=== PATIENT | male | born 1945 | race Asian ===

== ENCOUNTER 2021-04-02 06:06 | Day surgery (SDC) | payer MEDICARE ==
[~2021-04-02] VITALS: Ht 175.3 cm; Wt 60.0 kg
[~2021-04-02 06:06] MED LIST: SODIUM CHLORIDE 0.9% 1,000 ML IV ONE; SODIUM CHLORIDE 0.9% 1,000 ML ONE
[2021-04-02] MEDS ORDERED: ASPIRIN 81 MG CHEWABLE TABLET ONE (06:47)
[2021-04-02] MEDS ORDERED: DiphenhydrAMINE HCL 50 MG CAPSULE ONE (06:47)
[2021-04-02] MEDS ORDERED: DIAZEPAM 5 MG TABLET ONE (06:48)
[2021-04-02] MEDS ORDERED: IOHEXOL 300 MG/ML 50 ML VIAL ONE (07:10)
[2021-04-02] MEDS ORDERED: SODIUM BICARBONATE 50 MEQ/50 ML VIAL ONE (07:10)
[2021-04-02] MEDS ORDERED: LIDOCAINE/PF 1% 30 ML VIAL ONE (07:10)
[2021-04-02] MEDS ORDERED: HEPARIN SODIUM 1000 UNITS/NS 1,000 ML ONE (07:10)
[2021-04-02] MEDS ORDERED: IOHEXOL 300 MG/ML 100 ML VIAL ONE (07:10)
[2021-04-02] MEDS ORDERED: IOHEXOL 300 MG/ML 150 ML VIAL ONE ×2 (07:10→08:28)
[2021-04-02 07:22] LABS: GLUCOMETER DEV NAME(LOC) SDS.; GLUCOSE,POINT OF CARE 164 MG/DL (70-110)
[2021-04-02] MEDS ORDERED: ATOR10TA69 PO (07:28)
[2021-04-02] MEDS ORDERED: ASPI-1450 PO (07:28)
[2021-04-02] MEDS ORDERED: LINA5TAB PO (07:28)
[2021-04-02] MEDS ORDERED: DIAZEPAM 5 MG TABLET PO ONE (07:30)
[2021-04-02] MEDS ORDERED: ASPIRIN 81 MG CHEWABLE TABLET PO ONE (07:30)
[2021-04-02] MEDS ORDERED: DiphenhydrAMINE HCL 50 MG CAPSULE PO ONE (07:30)
[2021-04-02 07:47] VITALS: BP 171/88
[2021-04-02] MEDS ORDERED: FentaNYL CITRATE PF 100 MCG/2 ML VIAL ONE ×2 (07:48→08:31)
[2021-04-02] MEDS ORDERED: MIDAZOLAM HCL 2 MG/2 ML VIAL ONE ×2 (07:48→08:32)
[2021-04-02] MEDS ORDERED: METOPROLOL TARTRATE 5 MG/5 ML VIAL ONE ×4 (07:55→15:24)
[2021-04-02] MEDS ORDERED: LIDOCAINE 1% 30 ML/SOD BICARB 8.4% 4 ML SQ ONE (08:00)
[2021-04-02] MEDS ORDERED: MIDAZOLAM HCL 2 MG/2 ML VIAL IVP ONE ×3 (08:00→08:45)
[2021-04-02] MEDS ORDERED: HEPARIN SODIUM 1000 UNITS/NS 1,000 ML IARTER ONE (08:00)
[2021-04-02] MEDS ORDERED: IOHEXOL 300 MG/ML 150 ML VIAL IARTER ONE (08:00)
[2021-04-02] MEDS ORDERED: METOPROLOL TARTRATE 5 MG/5 ML VIAL IVP ONE ×3 (08:00→15:30)
[2021-04-02] MEDS ORDERED: SODIUM CHLORIDE 0.9% 500 ML IV ONE (08:00)
[2021-04-02] MEDS ORDERED: FentaNYL CITRATE PF 100 MCG/2 ML VIAL IVP ONE ×4 (08:00→08:45)
[2021-04-02] MEDS ORDERED: HEPARIN SODIUM,PORCINE 5,000 UNITS/ML VIAL IVP ONE ×2 (08:15→08:45)
[2021-04-02] MEDS ORDERED: TICAGRELOR 90 MG TABLET ONE ×2 (08:53→19:09)
[2021-04-02] MEDS ORDERED: TICAGRELOR 90 MG TABLET PO ONE ×2 (09:00→15:00)
[2021-04-02 09:12] VITALS: BP 171/74
[2021-04-02] MEDS ORDERED: SODIUM CHLORIDE 0.9% 1,000 ML IV ONE (09:15)
[2021-04-02] MEDS ORDERED: METOPROLOL TARTRATE 50 MG TABLET ONE (14:30)
[2021-04-02] MEDS ORDERED: AMIO200 PO (14:36)
[2021-04-02] MEDS ORDERED: GLIM4 PO (14:36)
[2021-04-02] MEDS ORDERED: INSU3INS3 SQ (14:36)
[2021-04-02] MEDS ORDERED: METOPROLOL TARTRATE 50 MG TABLET PO ONE (14:45)
[2021-04-02] MEDS ORDERED: DEXTROSE 50%-WATER 25 GM/50 ML SYRINGE IVP PRN (15:45)
[2021-04-02] MEDS ORDERED: INSULIN LISPRO 100 UNITS/ML SQ PRN (15:45)
[2021-04-02] MEDS ORDERED: ONDANSETRON HCL 4 MG/2 ML VIAL IVP PRN (15:45)
[2021-04-02] MEDS ORDERED: ACETAMINOPHEN 325 MG TABLET PO PRN (15:45)
[2021-04-02] MEDS ORDERED: OxyCODONE HCL/ACETAMINOPHEN 5-325 MG TABLET PO PRN (15:45)
[2021-04-02] MEDS ORDERED: INSLAN SQ (15:48)
[2021-04-02] MEDS ORDERED: CHOL-35 PO (15:48)
[2021-04-02] MEDS ORDERED: FERR-82 PO (15:48)
[2021-04-02] MEDS ORDERED: MULT-1259 PO (15:48)
[2021-04-02] MEDS ORDERED: TICAGRELOR 90 MG TABLET PO SCH (21:00)
[2021-04-02] MEDS ORDERED: DOCUSATE SODIUM 100 MG CAPSULE PO SCH (21:00)
[2021-04-02] MEDS ORDERED: ATORVASTATIN CALCIUM 40 MG TABLET PO SCH (21:00)
[2021-04-02] MEDS ORDERED: METOPROLOL TARTRATE 25 MG TABLET PO SCH (21:00)
[2021-04-03] MEDS ORDERED: ASPIRIN 81 MG CHEWABLE TABLET PO SCH (09:00)
[2021-04-03] MEDS ORDERED: FAMOTIDINE 20 MG TABLET PO SCH (09:00)
[2021-04-04] MEDS ORDERED: METO25 PO (08:43)
[2021-04-04] MEDS ORDERED: TICA90TA PO (08:43)
[2021-04-04] MEDS ORDERED: GLIM4 PO (08:43)
[2021-04-04] MEDS ORDERED: DIGO250T PO (08:43)
[2021-04-04 12:00] VITALS: BP 159/89
[2021-04-04 12:15] VITALS: BP 168/83
[2021-04-04 12:30] VITALS: BP 164/78
[2021-04-04 12:45] VITALS: BP 155/89
[2021-04-04 13:15] VITALS: BP 168/89
[2021-04-04] MEDS ORDERED: METOPROLOL TARTRATE 50 MG TABLET PO ONE (13:30)
[2021-04-04 13:45] VITALS: BP 131/65
[2021-04-05] MEDS ORDERED: METO25 PO ×2 (08:43→09:03)
[2021-04-05] MEDS ORDERED: ATOR40TA71 PO (08:43)
[2021-04-05] MEDS ORDERED: ATOR40TA28 PO ×2 (09:03→09:27)
[2021-04-05] MEDS ORDERED: METO50 PO (09:28)
[2021-04-05] MEDS ORDERED: TICA90TA PO (09:29)
== END 2021-04-02 19:45 | disposition home or self-care (01) ==
LOC: CATHLAB 06:06
PROVIDERS: ATTEND Internal Medicine Interventional Cardiology
DX: I25.10 Atherosclerotic heart disease of native coronary artery without angina pectoris (principal); E11.9 Type 2 diabetes mellitus without complications; I35.0 Nonrheumatic aortic (valve) stenosis; E78.5 Hyperlipidemia, unspecified; Z79.4 Long term (current) use of insulin; Z79.899 Other long term (current) drug therapy; Z79.82 Long term (current) use of aspirin; Z98.890 Other specified postprocedural states; J43.9 Emphysema, unspecified
CPT/HCPCS: 36415; 82962; 92978; 93005; 93458; 99152; 99153; C1753; C1757; C1760; C1874; C1887; C9600; J1644; J2250; J3010; J3490 ×3; J7030; Q9967 ×3; 75960; 92920; 92928